=== PATIENT | male | born 1945 | race Caucasian/White ===

== ENCOUNTER → 2023-04-01 | Outpatient (CLI) | payer MEDICARE, OTHER | LOC: LAB SHORT 10:41 → LAB 10:41 | DX: R30.0 Dysuria (principal) | CPT/HCPCS: 87086 ==

== ENCOUNTER 2023-06-20 18:26 | Emergency (ER) | payer MEDICARE, OTHER ==
[~2023-06-20] VITALS: Ht 175.3 cm; Wt 90.7 kg
[2023-06-20 18:34] VITALS: BP 154/94
[2023-06-20 18:53] LABS: Source, Urine Clean Catch
[2023-06-20 19:00] LABS: Appearance, Urine Turbid (Clear); Bilirubin, Urine Neg (Neg); Blood, Urine 5+ (Neg); Glucose Qualitative, Urine Neg (Neg); Ketones, Urine 1+ (Neg); Leukocyte Esterase, Urine 1+ (Neg); Nitrite, Urine Neg (Neg); Protein, Urine 4+ (Neg); Specific Gravity, Urine 1.015 (1.003-1.022); Urobilinogen, Urine NORM (Normal); pH, Urine 6.5 (5.0-8.0)
[2023-06-20 19:08] LABS: Color, Urine Red (P-Yellow)
[2023-06-20 19:09] LABS: Bacteria Few /hpf; Red Blood Cells, Urine TNTC /hpf (0-2); Squamous Epithelial Cells Rare /hpf (Few)
[2023-06-20] MEDS ORDERED: Cephalexin Monohydrate 500 MG Cap PO ONE (19:15)
[2023-06-20] MEDS ORDERED: CEPH500 PO (19:15)
== END 2023-06-20 19:35 | disposition home or self-care (01) ==
LOC: ER 18:26
PROVIDERS: Physician Assistant
DX: N39.0 Urinary tract infection, site not specified (principal)
CPT/HCPCS: 81001; 87086; 99283; A9270

== ENCOUNTER 2024-05-23 09:31 | Emergency (ER) | payer MEDICARE, OTHER ==
[~2024-05-23] VITALS: Ht 177.8 cm; Wt 90.7 kg
[~2024-05-23 09:31] MED LIST: CEPH500 PO
[2024-05-23 10:41] LABS: Source, Urine Clean Catch
[2024-05-23 10:59] LABS: Appearance, Urine Bloody (Clear); Bilirubin, Urine Neg (Neg); Blood, Urine 5+ (Neg); Color, Urine Red (P-Yellow); Glucose Qualitative, Urine Neg (Neg); Ketones, Urine 1+ (Neg); Leukocyte Esterase, Urine 1+ (Neg); Nitrite, Urine Neg (Neg); Protein, Urine 4+ (Neg); Urobilinogen, Urine NORM (Normal)
[2024-05-23 11:02] LABS: Red Blood Cells, Urine TNTC /hpf (0-2)
[2024-05-23 11:03] LABS: Squamous Epithelial Cells Rare /hpf (Few)
[2024-05-23 11:06] LABS: Bacteria Rare /hpf
[2024-05-23 11:59] LABS: Albumin, Blood 3.5 g/dL (3.4-5.0); Albumin/Globulin Ratio 1.2 (0.8-1.8); Bilirubin, Total 0.8 mg/dL (0.1-1.0); Bun/Creatinine Ratio 18.5 (12.0-20.0); Calcium, Blood 8.2 mg/dL (8.5-10.1); Creatinine, Blood 0.81 mg/dL (0.60-1.20); Globulin, Blood 2.8 g/dL (2.2-4.0); Potassium, Blood 4.5 mmol/L (3.5-5.5); Total Protein, Blood 6.3 g/dL (6.4-8.2)
[2024-05-23 12:04] LABS: BASOPHILS PERCENT AUTO 1 % (0-2); EOSINOPHILS ABSOLUTE AUTO 0.06 K/mm3 (0.00-0.68); EOSINOPHILS PERCENT AUTO 1 % (0-6); Hemoglobin 15.7 g/dL (13.5-17.5); IMMATURE GRAN ABSOLUTE AUTO 0.04 K/mm3 (0.00-0.10); IMMATURE GRAN PERCENT AUTO 1 % (0-1); LYMPHOCYTES ABSOLUTE AUTO 1.26 K/mm3 (0.84-5.20); LYMPHOCYTES PERCENT AUTO 16 % (21-46); MONOCYTES ABSOLUTE AUTO 0.65 K/mm3 (0.16-1.47); MONOCYTES PERCENT AUTO 8 % (4-13); Mean Corpuscular HGB 31.4 pg (26.0-34.0); Mean Corpuscular HGB Conc 34.9 g/dL (31.5-36.5); Mean Corpuscular Volume 90 fL (80-100); Mean Platelet Volume 12.3 fL (9.1-12.4); NEUTROPHILS ABSOLUTE AUTO 5.85 K/mm3 (1.96-9.15); NEUTROPHILS PERCENT AUTO 73 % (41-73); Platelet Count 88 K/mm3 (150-400); RDW Coefficient Variation 14.5 % (11.7-14.2); RDW Standard Deviation 47.6 fL (35.1-46.3); White Blood Cell Count 7.96 K/mm3 (4.00-11.30)
[2024-05-23] MEDS ORDERED: EZETIMIBE10 M6 PO (12:38)
[2024-05-23] MEDS ORDERED: ASPI81CH PO (12:40)
[2024-05-23] MEDS ORDERED: NITRO-DUR1 EAC1 TOP (12:40)
[2024-05-23] MEDS ORDERED: ATENOLOL25 MG PO (12:42)
[2024-05-23] MEDS ORDERED: LIPITOR80 MG PO (12:42)
[2024-05-23] MEDS ORDERED: Isosorbide Mono60 MG PO (12:42)
[2024-05-23] MEDS ORDERED: TAMSULOSIN HCL0.4 M1 PO (12:43)
[2024-05-23 13:30] VITALS: BP 142/66
== END 2024-05-23 13:49 | disposition home or self-care (01) ==
LOC: ER 09:31
PROVIDERS: Physician Assistant
DX: R31.0 Gross hematuria (principal); I10 Essential (primary) hypertension; Z79.899 Other long term (current) drug therapy; Z79.82 Long term (current) use of aspirin
CPT/HCPCS: 74177; 80053; 81001; 85025; 87086; 99284-25; Q9967